=== PATIENT | female | born 1955 | race Caucasian/White ===

== ENCOUNTER 2025-04-03 05:17 | Day surgery (SDC) | payer MEDICARE, OTHER ==
[2025-04-03] MEDS ORDERED: Propofol 200 MG/20 ML SDV IV ONE (05:18)
[2025-04-03] MEDS ORDERED: Lactated Ringers 1,000 ML IV ONE (05:18)
[2025-04-03] MEDS ORDERED: Propofol 200 MG/20 ML SDV ONE (05:50)
[2025-04-03] MEDS: Lactated Ringers 1,000 ML IV SCH (05:54)
[2025-04-03 09:24] VITALS: BP 141/74; PULSE 60
[2025-04-03] MEDS ORDERED: Lidocaine 2% Viscous Solution 15 ML UD PO PRN (09:48)
[2025-04-03] MEDS ORDERED: Take Home: Lidocaine 2% Viscous Solution 15 ML UD, 2 Cup Pack PO ONE (09:48)
[2025-04-03] MEDS ORDERED: Take Home: Lidocaine 2% Viscous Solution 15 ML UD, 2 Cup Pack ONE (09:51)
== END 2025-04-03 08:30 | disposition home or self-care (01) ==
LOC: DL.ENDO 05:17
PROVIDERS: ATTEND Internal Medicine Gastroenterology
DX: K31.7 Polyp of stomach and duodenum (principal); K29.50 Unspecified chronic gastritis without bleeding; I10 Essential (primary) hypertension; F41.8 Other specified anxiety disorders; J44.9 Chronic obstructive pulmonary disease, unspecified; E78.00 Pure hypercholesterolemia, unspecified; E66.09 Other obesity due to excess calories; Z68.37 Body mass index [BMI] 37.0-37.9, adult; Z88.5 Allergy status to narcotic agent; Z91.040 Latex allergy status; Z79.899 Other long term (current) drug therapy
CPT/HCPCS: 00731; 88305; J2003; J2704; J7120